=== PATIENT | male | born 1975 | race African-American/Black ===

== ENCOUNTER 2017-11-03 00:47 | Emergency (ER) | payer OTHER ==
[~2017-11-03] VITALS: Ht 185.4 cm; Wt 79.8 kg
[~2017-11-03 00:47] MED LIST: 0; IBUPROFEN800 M1 PO; KEFLEX500 M1 PO; KEPPRA500 M1 PO; MOTRIN600 MG PO; NAPROSYN500 M1 PO; ORPHENADRINE C100 MG PO; PERCOCET 5-3251 EACH PO; TRAMADOL HCL50 M1 PO
[2017-11-03 00:59] VITALS: BP 170/83
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
[2017-11-03] MEDS ORDERED: KEPPRA750 M1 PO (01:18)
== END 2017-11-03 01:38 ==
LOC: ERH 00:47
DX: R56.9 Unspecified convulsions (principal); Z76.0 Encounter for issue of repeat prescription
CPT/HCPCS: 99281

== ENCOUNTER 2018-01-28 05:29 | Emergency (ER) | payer OTHER ==
[~2018-01-28] VITALS: Ht 190.5 cm; Wt 76.2 kg
[~2018-01-28 05:29] MED LIST changes: +KEPPRA750 M1 PO
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
--- NOTE | 2018-01-28 06:59 | CT SCAN REPORT ---
EXAMINATION: NONCONTRAST HEAD CT NONCONTRAST CERVICAL SPINE CT INDICATION INFORMATION: Flow to left occiput with soft tissue swelling in tenderness, left neck tenderness COMPARISON: 06/02/2016 TECHNIQUE: Separate noncontrast CT examinations of the head and cervical spine were performed. Coronal head CT images and coronal and sagittal cervical spine images were created at the technologist workstation. DLP: 1011.01 mGy-cm FINDINGS: Head: There is no evidence of acute intracranial hemorrhage or territorial infarction. No abnormal mass-effect or midline shift is seen. Montano to white matter differentiation is well preserved. No extra-axial fluid collections are identified. The ventricles are normal in size. There is no abnormal attenuation within the brain parenchyma. The osseous structures and soft tissues are normal. The mastoid air cells and visualized portions of the paranasal sinuses are well-aerated. Cervical spine: There is reversal of the normal cervical lordosis, similar to prior, which may be due to positioning or muscle spasm. There is anatomic alignment of the vertebral bodies and posterior elements. Vertebral body heights and intervertebral disc spaces are maintained. Multilevel endplate osteophytes are noted. No evidence of acute fracture. No prevertebral soft tissue swelling. There is mild emphysema at the right lung apex. The thyroid gland is unremarkable. IMPRESSION: No acute findings identified in the head or cervical spine.
[2018-01-28] MEDS ORDERED: DICLOFENAC SODI75 M2 PO (07:18)
[2018-01-28 07:19] VITALS: BP 142/90
== END 2018-01-28 07:22 ==
LOC: ERH 05:29
DX: S09.90XA Unspecified injury of head, initial encounter (principal); S16.1XXA Strain of muscle, fascia and tendon at neck level, initial encounter; Y00.XXXA Assault by blunt object, initial encounter